=== PATIENT | male | born 2000 ===

== ENCOUNTER 2019-11-02 15:58 | Inpatient (IN) | payer MEDICAID ==
[~2019-11-02] VITALS: Ht 180.3 cm; Wt 83.2 kg
[2019-11-02] MEDS ORDERED: PROP10TA73 PO (16:57)
[2019-11-02] MEDS ORDERED: CITA-106 PO (16:57)
[2019-11-02] MEDS ORDERED: OLAN5TAB40 PO (16:57)
[2019-11-02] MEDS ORDERED: LAMO25TA25 PO (20:34)
[2019-11-02 21:29] VITALS: BP 133/86
[2019-11-02] MEDS ORDERED: INFLUENZA VIRUS VACCINE QVS 2019-20 (3YR+)/PF 60 MCG/0.5 ML SYRINGE IM ONE (21:30)
[2019-11-02] MEDS: ZOLPIDEM TARTRATE 10 MG TABLET PO PRN (22:25)
[2019-11-03 00:33] VITALS: BP 119/75
[2019-11-03 07:38] LABS: BASOPHILS % (AUTO) 0.9 % (0.0-2.0); EOSINOPHILS % (AUTO) 4.5 % (1.0-6.0); HEMATOCRIT 43.5 % (41-53); HEMOGLOBIN 14.8 g/dL (13.5-17.5); LYMPHOCYTES # (AUTO) 2.4 K/uL (1.0-4.8); LYMPHOCYTES % (AUTO) 39.4 % (22.0-44.0); MEAN CORPUSCULAR HEMOGLOBIN 30.4 pg (26.0-34.0); MEAN CORPUSCULAR HGB CONC 34.1 G/dL (31.0-37.0); MEAN CORPUSCULAR VOLUME 89 fL (80-100); MONOCYTES # (AUTO) 0.6 K/uL (0.1-1.0); MONOCYTES % (AUTO) 9.5 % (2.0-9.0); NEUTROPHILS # (AUTO) 2.7 K/uL (1.8-7.7); NEUTROPHILS % (AUTO) 45.7 % (40.0-70.0); PLATELET COUNT (AUTO) 273 K/uL (150-450); RED BLOOD CELL COUNT(AUTO) 4.88 MIL/uL (4.50-5.90)
[2019-11-03 08:18] VITALS: BP 119/68
[2019-11-03 08:24] LABS: ANION GAP 8 mmol/L (8-16); CARBON DIOXIDE 29 mmol/L (22-29); CHLORIDE 102 mmol/L (98-107); CHOLESTEROL 172 mg/dL (131-200); SODIUM SERUM 139 mmol/L (136-145); THYROID STIMULATING HORMONE 1.58 uIU/mL (0.36-3.74)
[2019-11-03 08:32] LABS: HEMOGLOBIN A1C 5.2 % (4.5-6.2)
[2019-11-03 08:42] LABS: ALANINE AMINOTRANSFERASE 31 U/L (12-78); ALBUMIN 4.2 g/dL (3.4-5.0); ALKALINE PHOSPHATASE 69 U/L (46-116); ASPARTATE AMINOTRANSFERASE 21 U/L (15-37); BILIRUBIN,TOTAL 0.2 mg/dL (0.1-1.0); CALCIUM, TOTAL 9.2 mg/dL (8.8-10.5); CHOL/HDL RATIO 4.1 (4.2-7.3); CREATININE 1.02 mg/dL (0.60-1.30); FREE T4 (FREE THYROXINE) 0.79 ng/dL (0.76-1.46); GLOMERULAR FILTR. RATE CALC > 60 mL/min (>60); GLUCOSE,RANDOM 83 mg/dL (70-110); HDL CHOLESTEROL 42 mg/dL (40-60); LDL CHOL (CALC.) 87 mg/dL (0-130); TOTAL PROTEIN, SERUM 8.3 g/dL (6.4-8.2); TRIGLYCERIDES 214 mg/dL (15-150); UREA NITROGEN, BLOOD 15 mg/dL (7-18)
[2019-11-03] MEDS: NICOTINE 21 MG/24 HOUR PATCH TD SCH (09:00)
[2019-11-03] MEDS ORDERED: IBUPROFEN 400 MG TABLET PO PRN (14:30)
[2019-11-03] MEDS: LamoTRIgine 25 MG TABLET PO SCH (14:54)
[2019-11-03 16:31] VITALS: BP 115/76
[2019-11-03] MEDS: LORazepam 2 MG TABLET PO PRN (18:38)
[2019-11-03 19:07] VITALS: BP 128/91
[2019-11-03] MEDS: OLANZapine 5 MG RAPDIS TABLET PO SCH (20:01)
[2019-11-03] MEDS: MIRTAZAPINE 15 MG TABLET PO SCH (20:01)
[2019-11-04 06:14] VITALS: BP 93/68
[2019-11-04] MEDS: LamoTRIgine 25 MG TABLET PO SCH (08:15)
[2019-11-04] MEDS: NICOTINE 21 MG/24 HOUR PATCH TD SCH (08:15)
[2019-11-04] MEDS ORDERED: DiphenhydrAMINE HCL 50 MG/ML VIAL ONE (16:00)
[2019-11-04] MEDS ORDERED: HALOPERIDOL LACTATE 5 MG/ML VIAL IM ONE (16:00)
[2019-11-04] MEDS ORDERED: HALOPERIDOL LACTATE 5 MG/ML VIAL ONE (16:00)
[2019-11-04] MEDS ORDERED: LORazepam 2 MG/ML VIAL IM ONE (16:00)
[2019-11-04] MEDS ORDERED: DiphenhydrAMINE HCL 50 MG/ML VIAL IM ONE (16:00)
[2019-11-04] MEDS ORDERED: LORazepam 2 MG/ML VIAL ONE (16:01)
[2019-11-04 16:21] VITALS: BP 103/56
[2019-11-04] MEDS: MIRTAZAPINE 15 MG TABLET PO SCH (20:40)
[2019-11-04] MEDS: OLANZapine 5 MG RAPDIS TABLET PO SCH (20:40)
[2019-11-05 08:27] VITALS: BP 104/60
[2019-11-05] MEDS: NICOTINE 21 MG/24 HOUR PATCH TD SCH (08:48)
[2019-11-05] MEDS: LamoTRIgine 25 MG TABLET PO SCH (08:48)
[2019-11-05 16:25] VITALS: BP 138/108
[2019-11-05] MEDS: LORazepam 2 MG TABLET PO PRN (17:44)
[2019-11-05] MEDS: OLANZapine 5 MG RAPDIS TABLET PO SCH (20:14)
[2019-11-05] MEDS: MIRTAZAPINE 15 MG TABLET PO SCH (20:14)
[2019-11-06 06:22] VITALS: BP 99/55
[2019-11-06 08:34] VITALS: BP 103/61
[2019-11-06] MEDS: NICOTINE 21 MG/24 HOUR PATCH TD SCH (08:46)
[2019-11-06] MEDS: LamoTRIgine 25 MG TABLET PO SCH (08:46)
[2019-11-06] MEDS: HALOPERIDOL 5 MG TABLET PO PRN (14:08)
[2019-11-06] MEDS: LORazepam 2 MG TABLET PO PRN (14:08)
[2019-11-06 16:08] VITALS: BP 108/64
[2019-11-06] MEDS: OLANZapine 5 MG RAPDIS TABLET PO SCH (20:49)
[2019-11-06] MEDS: MIRTAZAPINE 15 MG TABLET PO SCH (20:49)
[2019-11-06] MEDS: ZOLPIDEM TARTRATE 10 MG TABLET PO PRN (20:49)
[2019-11-07 06:17] VITALS: BP 112/69
[2019-11-07 08:40] VITALS: BP 122/68
[2019-11-07] MEDS: LamoTRIgine 25 MG TABLET PO SCH (08:57)
[2019-11-07] MEDS: NICOTINE 21 MG/24 HOUR PATCH TD SCH (08:57)
[2019-11-07] MEDS: HALOPERIDOL 5 MG TABLET PO PRN (11:26)
[2019-11-07] MEDS: LORazepam 2 MG TABLET PO PRN ×2 (11:26→16:48)
[2019-11-07 16:00] VITALS: BP 105/67
[2019-11-07] MEDS: MIRTAZAPINE 15 MG TABLET PO SCH (20:51)
[2019-11-07] MEDS: OLANZapine 5 MG RAPDIS TABLET PO SCH (20:51)
[2019-11-07] MEDS: ZOLPIDEM TARTRATE 10 MG TABLET PO PRN (20:51)
[2019-11-08 03:50] VITALS: BP 117/71
[2019-11-08 08:00] VITALS: BP 121/97
[2019-11-08] MEDS: NICOTINE 21 MG/24 HOUR PATCH TD SCH (09:00)
[2019-11-08] MEDS: LamoTRIgine 25 MG TABLET PO SCH (09:45)
[2019-11-08] MEDS: LORazepam 2 MG TABLET PO PRN (10:24)
[2019-11-08] MEDS ORDERED: MIRT-92 PO (11:16)
== END 2019-11-08 13:00 | disposition home or self-care (01) | DRG 750 ==
LOC: B2S 21:25 → B3A 11-04 16:24
PROVIDERS: ADMIT Psychiatry & Neurology Child & Adolescent Psychiatry
DX: F25.1 Schizoaffective disorder, depressive type (principal); R45.851 Suicidal ideations; F10.10 Alcohol abuse, uncomplicated; F84.0 Autistic disorder; E78.5 Hyperlipidemia, unspecified; F19.10 Other psychoactive substance abuse, uncomplicated
CPT/HCPCS: 83036; 84439; 84443; 87081; J1200; J1630; J2060